=== PATIENT | female | born 1955 | race Caucasian/White ===

== ENCOUNTER 2017-12-31 13:13 | Emergency (ER) | payer SELFPAY ==
[2017-12-31] MEDS ORDERED: NA CHLORIDE 0.9% 1,000 ML ONE ×2 (14:10→16:43)
[2017-12-31 14:28] LABS: Absolute Lymphocytes (CBC) 1.3 K/uL (0.7-4.9); Absolute Monocytes 0.7 K/uL (0.1-1.3); Absolute Neutrophil 6.3 K/uL (1.8-8.0); Basophils % 0.6 % (0-1.3); Eosinophils % 0.6 % (0-4.4); Hematocrit 47.4 % (36.0-45.0); Lymphocytes % 15.5 % (15.3-44.8); MCH 32.3 pg (27.0-35.0); MCV 94.2 fL (80-100); MPV 8.3 fL (7.6-11.3); Monocytes % 8.6 % (3.3-12.3); RBC Red Blood Cell Count 5.03 M/uL (3.86-4.86)
[2017-12-31 14:31] LABS: Protime INR 0.97
[2017-12-31 14:52] LABS: ALT/SGPT 25 U/L (12-78); AST/SGOT 21 U/L (15-37); Alkaline Phosphatase 92 U/L (45-117); BUN Blood Urea Nitrogen 5 mg/dL (7-18); Bicarbonate 28 mmol/L (21-32); Bilirubin Direct 0.1 mg/dL (0-0.2); Bilirubin Total 0.3 mg/dL (0.2-1.0); Glucose Level 91 mg/dL (74-106); Protein, Total 7.7 g/dL (6.4-8.2); Sodium Level 140 mmol/L (136-145)
[2017-12-31] MEDS ORDERED: DIAZEPAM 2 MG TABLET ONE (15:09)
[2017-12-31 15:51] LABS: Urine Blood TRACE (NEG); Urine Glucose NEGATIVE (NEG); Urine Protein NEGATIVE (NEG); Urine Specific Gravity 1.015 (1.005-1.030)
[2017-12-31 15:57] LABS: Urine Bacteria LOADED /HPF (<20); Urine Culture Reflex Order REFLEXED; Urine RBC <5 /HPF (NONE SEEN)
[2017-12-31 16:19] LABS: Barbiturates NEGATIVE (NEGATIVE); Benzodiazepines NEGATIVE (NEGATIVE); Cocaine NEGATIVE (NEGATIVE); METHAMPHETAM NEGATIVE (NEGATIVE); Methadone NEGATIVE (NEGATIVE); Opiates NEGATIVE (NEGATIVE); Phencyclidine NEGATIVE (NEGATIVE); THC Cannibis NEGATIVE (NEGATIVE)
[2017-12-31] MEDS ORDERED: hydrOXYzine HCl 25 MG TAB ONE (16:43)
--- NOTE | 2017-12-31 17:37 | ER ---
Nurse's Notes [facility] Name: Catalina Kevin Age: 62 yrs Sex: Female : 1955 Arrival Date: 12/31/2017 Time: 13:16 Bed 6 Private MD: Diagnosis: Acute stress reaction Presentation: 12/31 13:18 Presenting complaint: Patient states: "I went a couple months worrying about my son and aj1 I haven't been able to eat. I can't sleep, I can't shut my mind off. My nerves are shot. Sometimes my spine feels like its on fire" Patient reports that this has been going on for months but has gotten worse in the past 2 weeks. Patient appears anxious, tearful in triage. Patient reports that she drinks a 6 pack of beer nightly so that she can sleep. 13:20 Transition of care: patient was not received from another setting of care. Onset of aj1 symptoms was November 2017. Risk Assessment: Do you want to hurt yourself or someone else? Patient reports no desire to harm self or others. Initial Sepsis Screen: Does the patient meet any 2 criteria? HR > 90 bpm. No. Patient's initial sepsis screen is negative. Does the patient have a suspected source of infection? No. Patient's initial sepsis screen is negative. Care prior to arrival: None. 13:20 Method Of Arrival: Ambulatory aj 13:20 Acuity: LORETTA 3 aj1 Triage Assessment: 13:20 Pain: Denies pain. Neuro: Level of Consciousness is awake, alert, obeys commands. aj1 Cardiovascular: Patient's skin is warm and dry. Respiratory: Airway is patent Respiratory effort is even, unlabored, Respiratory pattern is regular, symmetrical. 13:22 General: Appears uncomfortable, Behavior is anxious, crying. aj1 Historical: - Allergies: 13:22 Codeine; aj1 - Home Meds: 13:22 None [Active]; aj1 - PMHx: 13:22 hypoglycemia; aj1 - PSHx: 13:22 Cholecystectomy; ; aj1 - Immunization history:: Flu vaccine is not up to date. - Social history:: Smoking status: Patient uses tobacco products, smokes one-half pack cigarettes per day, Patient uses alcohol, claims drinking about a 6 pack/day. - Ebola Screening: : Patient denies travel to an Ebola-affected area in the 21 days before illness onset. Screenin:10 Abuse screen: Denies threats or abuse. Denies injuries from another. Nutritional sv screening: No deficits noted. Tuberculosis screening: No symptoms or risk factors identified. Fall Risk None identified. Assessment: 14:10 General: Appears in no apparent distress. uncomfortable, slender, Behavior is calm, sv cooperative, appropriate for age, Reports drinking 1 beer last night, even though it made me nauseous. Pain: Denies pain. Neuro: Level of Consciousness is awake, alert, obeys commands, Oriented to person, place, time, situation, Moves all extremities. Full function Gait is steady. Neuro: Reports weakness. Respiratory: Respiratory effort is even, unlabored, Respiratory pattern is regular, symmetrical. GI: Reports intolerance of food, tolerance of fluids. Derm: Skin is normal. 15:42 Reassessment: Patient appears in no apparent distress at this time. No changes from sv previously documented assessment. Patient and/or family updated on plan of care and expected duration. Pain level reassessed. Patient is alert, oriented x 3, equal unlabored respirations, skin warm/dry/pink. Valium given after urine specimen obtained. 17:48 Reassessment: Patient appears in no apparent distress at this time. No changes from sv previously documented assessment. Patient and/or family updated on plan of care and expected duration. Pain level reassessed. Patient is alert, oriented x 3, equal unlabored respirations, skin warm/dry/pink. Vital Signs: 13:20 BP 130 / 95; Pulse 110; Resp 24; Temp 98.6; Pulse Ox 96% on R/A; Weight 53.52 kg (R); aj1 Height 5 ft. 2 in. (157.48 cm) (R); Pain 0/10; 14:34 BP 135 / 77; Pulse 73; Resp 22; Pulse Ox 99% ; jb1 14:43 BP 135 / 77; Pulse 85; Resp 16; Pulse Ox 98% ; sv 15:28 BP 133 / 76; Pulse 77; Resp 16; Pulse Ox 99% ; sv 16:27 BP 134 / 80; Pulse 83; Resp 16; Pulse Ox 99% ; sv 17:23 BP 148 / 82; Pulse 74; Resp 16; Pulse Ox 100% ; sv 13:20 Body Mass Index 21.58 (53.52 kg, 157.48 cm) aj1 ED Course: 13:16 Patient arrived in ED. as 13:20 Arm band placed on Patient placed in an exam room. aj1 13:21 Triage completed. aj1 13:27 Aren Hurst, IBETH is PHCP. pm1 13:27 Jerrell Brown MD is Attending Physician. pm1 13:35 Rosa Martinez, CARMELA is Primary Nurse. sv 14:10 Patient has correct armband on for positive identification. Bed in low position. Call sv light in reach. Adult w/ patient. Pulse ox on. NIBP on. Door closed. Warm blanket given. Head of bed elevated. 14:12 Initial lab(s) drawn, by me, sent to lab. Inserted saline lock: 20 gauge in right ph antecubital area, using aseptic technique. Blood collected. 14:18 EKG done, by cert pharmacy tech. reviewed by Aren Hurst NP. sm3 14:28 Awaiting lab results. sv 15:39 Urine collected: clean catch specimen, cloudy, bernie colored. jb1 15:59 Urine Culture Sent. sv 17:48 No provider procedures requiring assistance completed. IV discontinued, intact, sv bleeding controlled, No redness/swelling at site. Pressure dressing applied. Administered Medications: 14:12 Drug: NS 0.9% 1000 ml Route: IV; Rate: 1000 ml; Site: right antecubital; ph 15:41 Drug: Valium 2 mg Route: PO; sv 15:59 Follow up: Response: No adverse reaction sv 16:40 Drug: NS 0.9% 1000 ml Route: IV; Rate: 1000 ml; Site: right antecubital; sv 17:47 Follow up: Response: No adverse reaction; IV Status: Completed infusion; IV Intake: sv 1000ml 16:40 Drug: hydrOXYzine 25 mg Route: PO; sv 17:32 Follow up: Response: No adverse reaction sv Intake: 17:47 IV: 1000ml; Total: 1000ml. sv Outcome: 17:37 Discharge ordered by . pm1 17:48 Discharged to home ambulatory, with family. sv 17:48 Condition: stable 17:48 Discharge instructions given to patient, family, Instructed on discharge instructions, follow up and referral plans. medication usage, Demonstrated understanding of instructions, follow-up care, medications, Prescriptions given X 1. 17:49 Patient left the ED. sv Addendum: 01/03/2018 09:31 Addendum: Culture Results: Positive urine culture. No further action required. Other: i w pt had no urinary complaints at date of service, pt was advised by ER staff to follow up with PCP after discharge. Patient was not prescribed antibiotics at discharge. Report given to DAVID for further evaluation and then to data entry specialist for follow up with patient. Signatures: Timoteo Osborne jb1 Una Monson RN RN aj1 Rosa Martinez RN RN sv Martinez, Amelia as Williams, Irene, RN RN Isabella Zarate RN RN Aren Hurst, PAPERHANGER ASSISTANT PAPERHANGER ASSISTANT pm1 Gwen Navarro sm3 Corrections: (The following items were deleted from the chart) 12/31 13:23 13:18 Presenting complaint: Patient states: "I went a couple months worrying about my aj1 son and I haven't been able to eat. I can't sleep, I can't shut my mind off. My nerves are shot. Sometimes my spine feels like its on fire" Patient reports that this has been going on for months but has gotten worse in the past 2 weeks. Patient appears anxious, tearful in triage. aj1 13:23 13:20 Acuity: LORETTA 4 aj1 1 14:43 14:10 General: Appears in no apparent distress. uncomfortable, slender, Behavior is sv calm, cooperative, appropriate for age, sv
--- NOTE | 2017-12-31 17:37 | EDPHYS ---
Physician Documentation [facility] Name: Catalina Kevin Age: 62 yrs Sex: Female : 1955 Arrival Date: 12/31/2017 Time: 13:16 Bed 6 Private MD: ED Physician Jerrell Brown HPI: 12/31 16:36 This 62 yrs old Female presents to ER via Ambulatory with complaints of pm1 Decreased Appetite, Weakness. 16:36 The patient presents to the emergency department with anxiety, Over son's health, pm1 depression, Over son's health. 16:36 Onset: The symptoms/episode began/occurred 2 month(s) ago. Past psychiatric history: pm1 Prior diagnosis: no previous psychiatric diagnosis known, Psychiatric medications include: none, Primary psychiatric physician: the patient does not have a primary psychiatric physician. Associated signs and symptoms: Pertinent negatives: abdominal pain, chest pain, delusions, hallucinations, homicidal ideation, shortness of breath, suicide ideation. Severity of symptoms: Pain is currently a 0 / 10. The patient has experienced a previous episode, many years ago, and the symptoms today are exactly the same, Related to stressful family situation and patient was prescribed Effexor by PCP. The patient has not recently seen a physician, and does not have an established primary care provider, [facility]. Patient is stressed over the health of her adult son. He has had a productive cough for multiple months and has seen specialists. They don't have a diagnosis and she is concerned over his health to the point that she is feeling anxious and depressed. She has a decreased appetite along with difficulty of sleeping.. Historical: - Allergies: 13:22 Codeine; aj1 - Home Meds: 13:22 None [Active]; aj1 - PMHx: 13:22 hypoglycemia; aj1 - PSHx: 13:22 Cholecystectomy; ; aj1 - Immunization history:: Flu vaccine is not up to date. - Social history:: Smoking status: Patient uses tobacco products, smokes one-half pack cigarettes per day, Patient uses alcohol, claims drinking about a 6 pack/day. - Ebola Screening: : Patient denies travel to an Ebola-affected area in the 21 days before illness onset. ROS: 16:36 Constitutional: Negative for fever, chills, and weight loss, Eyes: Negative for injury, pm1 pain, redness, and discharge, ENT: Negative for injury, pain, and discharge, Neck: Negative for injury, pain, and swelling, Cardiovascular: Negative for chest pain, palpitations, and edema, Respiratory: Negative for shortness of breath, cough, wheezing, and pleuritic chest pain, Abdomen/GI: Negative for abdominal pain, nausea, vomiting, diarrhea, and constipation, Back: Negative for injury and pain, : Negative for injury, bleeding, discharge, and swelling, MS/Extremity: Negative for injury and deformity, Skin: Negative for injury, rash, and discoloration, Neuro: Negative for headache, weakness, numbness, tingling, and seizure. 16:36 Psych: Positive for anxiety, depression, insomnia, Negative for auditory hallucinations, visual hallucinations, homicidal ideation, suicide gesture, suicidal ideation. Exam: 16:36 Constitutional: This is a well developed, well nourished patient who is awake, alert, pm1 and in no acute distress. Head/Face: Normocephalic, atraumatic. Eyes: Pupils equal round and reactive to light, extra-ocular motions intact. Lids and lashes normal. Conjunctiva and sclera are non-icteric and not injected. Cornea within normal limits. Periorbital areas with no swelling, redness, or edema. ENT: Nares patent. No nasal discharge, no septal abnormalities noted. Tympanic membranes are normal and external auditory canals are clear. Oropharynx with no redness, swelling, or masses, exudates, or evidence of obstruction, uvula midline. Mucous membranes moist. Neck: Trachea midline, no thyromegaly or masses palpated, and no cervical lymphadenopathy. Supple, full range of motion without nuchal rigidity, or vertebral point tenderness. No Meningismus. Chest/axilla: Normal chest wall appearance and motion. Nontender with no deformity. No lesions are appreciated. Cardiovascular: Regular rate and rhythm with a normal S1 and S2. No gallops, murmurs, or rubs. Normal PMI, no JVD. No pulse deficits. Respiratory: Lungs have equal breath sounds bilaterally, clear to auscultation and percussion. No rales, rhonchi or wheezes noted. No increased work of breathing, no retractions or nasal flaring. Abdomen/GI: Soft, non-tender, with normal bowel sounds. No distension or tympany. No guarding or rebound. No evidence of tenderness throughout. Back: No spinal tenderness. No costovertebral tenderness. Full range of motion. Skin: Warm, dry with normal turgor. Normal color with no rashes, no lesions, and no evidence of cellulitis. MS/ Extremity: Pulses equal, no cyanosis. Neurovascular intact. Full, normal range of motion. 16:36 Neuro: Orientation: is normal, Motor: moves all fours, Sensation: is normal, no obvious gross deficits, Gait: is steady, at a normal pace, without difficulty. Vital Signs: 13:20 BP 130 / 95; Pulse 110; Resp 24; Temp 98.6; Pulse Ox 96% on R/A; Weight 53.52 kg (R); aj1 Height 5 ft. 2 in. (157.48 cm) (R); Pain 0/10; 14:34 BP 135 / 77; Pulse 73; Resp 22; Pulse Ox 99% ; jb1 14:43 BP 135 / 77; Pulse 85; Resp 16; Pulse Ox 98% ; sv 15:28 BP 133 / 76; Pulse 77; Resp 16; Pulse Ox 99% ; sv 16:27 BP 134 / 80; Pulse 83; Resp 16; Pulse Ox 99% ; sv 17:23 BP 148 / 82; Pulse 74; Resp 16; Pulse Ox 100% ; sv 13:20 Body Mass Index 21.58 (53.52 kg, 157.48 cm) aj1 MDM: 13:33 Patient medically screened. pm1 17:36 Data reviewed: vital signs. Data interpreted: Pulse oximetry: on room air is 100 %. pm1 Interpretation: normal. Counseling: I had a detailed discussion with the patient and/or guardian regarding: the historical points, exam findings, and any diagnostic results supporting the discharge/admit diagnosis, lab results, the need for outpatient follow up, to return to the emergency department if symptoms worsen or persist or if there are any questions or concerns that arise at home. 12/31 13:55 Order name: Acetaminophen; Complete Time: 14:53 pm1 12/31 13:55 Order name: Basic Metabolic Panel; Complete Time: 14:53 pm1 12/31 13:55 Order name: CBC with Diff; Complete Time: 14:53 pm1 12/31 13:55 Order name: ETOH Level; Complete Time: 14:53 pm1 12/31 13:55 Order name: Hepatic Function; Complete Time: 14:53 pm1 12/31 13:55 Order name: PT-INR; Complete Time: 14:53 pm1 12/31 13:55 Order name: Ptt, Activated; Complete Time: 14:53 pm1 12/31 13:55 Order name: Salicylate; Complete Time: 14:53 pm1 12/31 13:55 Order name: Urine Drug Screen; Complete Time: 16:23 pm1 12/31 15:34 Order name: Urine Microscopic Only; Complete Time: 15:59 pm1 12/31 15:40 Order name: Urine Dipstick--Ancillary (enter results); Complete Time: 15:59 eb 12/31 15:59 Order name: Urine Culture EDWY 12/31 13:55 Order name: Urine Test (obtain specimen); Complete Time: 15:39 pm1 12/31 13:55 Order name: EKG; Complete Time: 13:56 pm1 12/31 13:55 Order name: EKG - Nurse/Tech; Complete Time: 14:13 pm1 12/31 13:55 Order name: IV Saline Lock; Complete Time: 14:13 pm1 12/31 13:55 Order name: Labs collected and sent; Complete Time: 14:13 pm1 12/31 13:55 Order name: Urine Dipstick-Ancillary (obtain specimen); Complete Time: 15:39 pm1 Administered Medications: 14:12 Drug: NS 0.9% 1000 ml Route: IV; Rate: 1000 ml; Site: right antecubital; ph 15:41 Drug: Valium 2 mg Route: PO; sv 15:59 Follow up: Response: No adverse reaction sv 16:40 Drug: NS 0.9% 1000 ml Route: IV; Rate: 1000 ml; Site: right antecubital; sv 17:47 Follow up: Response: No adverse reaction; IV Status: Completed infusion; IV Intake: sv 1000ml 16:40 Drug: hydrOXYzine 25 mg Route: PO; sv 17:32 Follow up: Response: No adverse reaction sv Disposition: 18:39 Co-signature as Attending Physician, Jerrell Brown MD. rn Disposition: 12/31/17 17:37 Discharged to Home. Impression: Acute stress reaction. - Condition is Stable. - Discharge Instructions: Stress and Stress Management, Major Depressive Disorder. - Prescriptions for Hydroxyzine HCl 50 mg Oral Tablet - take 1 tablet by ORAL route every 8 hours As needed; 20 tablet. - Medication Reconciliation Form, Thank You Letter, Antibiotic Education form. - Follow up: Emergency Department; When: As needed; Reason: Worsening of condition. Follow up: Private Physician; When: 2 - 3 days; Reason: Recheck today's complaints, Continuance of care, Re-evaluation by your physician. - Problem is new. - Symptoms have improved. Signatures: Dispatcher [employer] EDW[place] Una Monson RN RN aj1 Rosa Martinez RN RN sv Jerrell Brown MD MD rn Hall, CARMELA Mason RN Aren Hurst, IBETH INDEXER pm1 Corrections: (The following items were deleted from the chart) 17:49 17:37 12/31/2017 17:37 Discharged to Home. Impression: Acute stress reaction. Condition sv is Stable. Discharge Instructions: Stress and Stress Management, Major Depressive Disorder. Prescriptions for Hydroxyzine HCl 50 mg Oral Tablet - take 1 tablet by ORAL route every 8 hours As needed; 20 tablet. and Forms are Medication Reconciliation Form, Thank You Letter, Antibiotic Education, Prescription Opioid Use. Follow up: Emergency Department; When: As needed; Reason: Worsening of condition. Follow up: Private Physician; When: 2 - 3 days; Reason: Recheck today's complaints, Continuance of care, Re-evaluation by your physician. Problem is new. Symptoms have improved. pm1
--- NOTE | 2018-01-01 07:51 | EKG ---
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
== END 2017-12-31 17:49 | disposition home or self-care (01) ==
LOC: ER 13:13
DX: F43.0 Acute stress reaction (principal); F32.9 Major depressive disorder, single episode, unspecified; F17.210 Nicotine dependence, cigarettes, uncomplicated; Z88.5 Allergy status to narcotic agent
CPT/HCPCS: 36415; 80048; 80076; 80307; 80320; 80329; 81003; 81015; 85025; 85610; 85730; 87077; 87086; 87088; 87186; 93005; 96360; 99284; J7030